=== PATIENT | male | born 1965 | race Caucasian/White ===

== ENCOUNTER 2022-06-22 20:56 | Emergency (ER) | payer BC ==
[~2022-06-22] VITALS: Ht 175.3 cm; Wt 81.8 kg
[2022-06-22 21:02] VITALS: BP 150/99
[2022-06-22] MEDS ORDERED: prednisoLONE 15mg/5ml oral solution 5ml cup PO STA (21:38)
[2022-06-22] MEDS ORDERED: LIDOcaine Viscous 15ml cup MM STA (21:38)
[2022-06-22] MEDS ORDERED: ibuprofen tablet 400 MG TABLET PO ONE (21:40)
== END 2022-06-22 22:26 | disposition home or self-care (01) ==
LOC: ER 20:56
DX: J68.8 Other respiratory conditions due to chemicals, gases, fumes and vapors (principal); R09.89 Other specified symptoms and signs involving the circulatory and respiratory systems
CPT/HCPCS: 99284; J7510